=== PATIENT | male | born 1995 | race African-American/Black ===

== ENCOUNTER 2019-06-09 00:33 | Emergency (ER) | payer OTHER ==
[~2019-06-09] VITALS: Ht 182.9 cm; Wt 104.1 kg
[2019-06-09 00:41] VITALS: TEMP 98.9
[2019-06-09] MEDS ORDERED: MOBIC15 MG PO (00:48)
[2019-06-09] MEDS ORDERED: NORCO 325 MG-51 TAB PO (03:22)
[2019-06-09] MEDS ORDERED: FLEXERIL 1010 MG/TAB PO (03:22)
[2019-06-09 04:20] VITALS: BP 142/83; PULSE 76
== END 2019-06-09 04:41 | disposition home or self-care (01) ==
LOC: COL.ER 00:33
DX: S39.012A Strain of muscle, fascia and tendon of lower back, initial encounter (principal); X50.0XXA Overexertion from strenuous movement or load, initial encounter; Y92.39 Other specified sports and athletic area as the place of occurrence of the external cause
CPT/HCPCS: J1885; J7512